=== PATIENT | female | born 1995 | race African-American/Black ===

== ENCOUNTER 2017-08-31 17:35 | Emergency (ER) | payer OTHER ==
[2017-08-31 17:52] VITALS: BP 129/72; PULSE 88; TEMP 99.4; BMI 20.1
--- NOTE | 2017-08-31 17:55 | PDOC ---
Rapid Medical Evaluation Chief Complaint: Pain Medical Evaluation: Allergies Allergy/AdvReac Type Severity Reaction Status Date / Time No Known Allergies Allergy Verified 08/31/17 17:49 Vital Signs Temp Pulse Resp BP Pulse Ox 99.4 F 88 18 129/72 100 08/31/17 17:50 08/31/17 17:50 08/31/17 17:50 08/31/17 17:50 08/31/17 17:50 08/31/17 17:49 I have performed a brief in-person evaluation of this patient. The patient presents with a chief complaint of: pain L rib s/p going to trampoline place 2 days ago, no meds taken Pertinent physical exam findings: well appearing I have ordered the following: rib x-ray, upreg The patient will proceed to the ED for further evaluation.
[2017-08-31] MEDS ORDERED: IBUPROFEN 600 MG TABLET (FP) PO ONE ×2 (19:37→19:39)
--- NOTE | 2017-08-31 20:06 | PDOC ---
History of Present Illness - General Chief Complaint: Pain Stated Complaint: PAIN Time Seen by Provider: 08/31/17 19:44 History Source: Patient Exam Limitations: No Limitations - History of Present Illness Initial Comments: 08/31/17 21:08 Patient is a [22-year-old female, no significant medical history currently on no medication presents with left lower rib pain after jumping on trampoline. Patient reports that she was jumping on a trampoline the next day she woke up with pain denies any direct injury. Patient with no respiratory difficulty, no shortness of breath or chest pain.] Past Medical History: [Denies]. Allergies: No known allergies Medications: [None] Family History: Non-contributory Social History: Denies smoking, alcohol use, or IVDU Review of Systems GENERAL/CONSTITUTIONAL: [No fever or chills. No weakness. No weight change.] HEAD, EYES, EARS, NOSE AND THROAT: [No change in vision. No ear pain or discharge. No sore throat. ] CARDIOVASCULAR: [No chest pain or shortness of breath.] RESPIRATORY: [No cough, wheezing, or hemoptysis.] GASTROINTESTINAL: [No nausea, vomiting, diarrhea or constipation. No rectal bleeding.] GENITOURINARY: [No dysuria, frequency, or change in urination.] MUSCULOSKELETAL: [Left lateral lower rib pain, no neck or back pain.] SKIN AND BREASTS: [No rash or easy bruising.] NEUROLOGIC: [No headache, vertigo, loss of consciousness, or loss of sensation.] PSYCHIATRIC: [No depression or anxiety.] ENDOCRINE: [No increased thirst. No abnormal weight change.] HEMATOLOGIC/LYMPHATIC: [No anemia, easy bleeding, or history of blood clots.] ALLERGIC/IMMUNOLOGIC: [No hives or skin allergy. No latex allergy.] Physical Exam: GENERAL: [The patient is awake, alert, and fully oriented, in no acute distress. ] HEAD: [Normal with no signs of trauma.] EYES: [Pupils equal, round and reactive to light, extraocular movements intact, sclera anicteric, conjunctiva clear.] ENT: [Ears normal, nares patent, oropharynx clear without exudates. Moist mucous membranes. No uvula deviation] NECK: [Normal range of motion, supple without lymphadenopathy, JVD, or masses.] LUNGS: [Breath sounds equal, clear to auscultation bilaterally. No wheezes, and no crackles.] HEART: [Regular rate and rhythm, normal S1 and S2 without murmur, rub or gallop. ] ABDOMEN: [Soft, nontender, normoactive bowel sounds. No guarding, no rebound. No masses. No bruising or abrasions] MUSCULOSKELETAL: [Normal range of motion, no edema. No clubbing or cyanosis. No cords, erythema, or tenderness. No CVA Tenderness with fist palpation. Pain to left lower ribs on deep palpation.] NEUROLOGICAL: [Cranial nerves II through XII grossly intact. Normal speech, normal gait.] SKIN: [Warm, Dry, normal turgor, no rashes or lesions noted. No erythema edema or bruising] Past History - Past Medical History Allergies/Adverse Reactions: Allergies Allergy/AdvReac Type Severity Reaction Status Date / Time No Known Allergies Allergy Verified 08/31/17 17:49 Home Medications: Ambulatory Orders Ibuprofen [Motrin -] 400 mg PO QID #20 tablet 08/31/17 COPD: No - Suicide/Smoking/Psychosocial Hx Smoking History: Never smoked Information on smoking cessation initiated: No Hx Alcohol Use: No Drug/Substance Use Hx: No Substance Use Type: None *Physical Exam - Vital Signs Last Vital Signs Temp Pulse Resp BP Pulse Ox 99.4 F 88 18 129/72 100 08/31/17 17:50 08/31/17 17:50 08/31/17 17:50 08/31/17 17:50 08/31/17 17:50 ED Treatment Course - ADDITIONAL ORDERS Additional order review: Laboratory Results 08/31/17 18:30 Urine HCG, Qual Negative - Medications Given in the ED: ED Medications Discontinued Medications Generic Name Dose Route Start Last Admin Trade Name Freq PRN Reason Stop Dose Admin Ibuprofen 600 mg 08/31/17 19:37 08/31/17 19:42 Motrin - PO 08/31/17 19:38 Not Given ONCE ONE Medical Decision Making - Medical Decision Making 08/31/17 21:10 A/P: Patient with left foot pain after jumping on a trampoline woke up with the pain the next day denies any respiratory difficulty, no shortness of breath, no chest pain. X-ray was sent and negative for acute fracture of ribs patient was given Motrin with good result of symptoms, will DC patient on anti- inflammatories patient reports that she was unable to go to work however the pain is resolving she needs a note to return back to work. *DC/Admit/Observation/Transfer Diagnosis at time of Disposition: Muscle strain, Rib pain on left side - Discharge Dispostion Disposition: HOME Condition at time of disposition: Stable Admit: No - Prescriptions Prescriptions: Ibuprofen [Motrin -] 400 mg PO QID #20 tablet - Referrals Referrals: Gypsy Last [Primary Care Provider] - - Patient Instructions Additional Instructions: 1. Please return to the emergency department with any numbness, tingling, weakness, numbness or tingling to groin or legs, or loss of bowel or bladder function. 2. Use pain medication as ordered. 3. Please is to followup in the office of Dr. Page for evaluation within a week if no improvement. 4. Ice or heat 5. Refrain from lifting anything above 10 pounds, until pain resolved. - Post Discharge Activity Forms/Work/School Notes: Back to Work
== END 2017-08-31 20:47 | disposition home or self-care (01) ==
LOC: JERFT 17:35
DX: R07.81 Pleurodynia (principal); T14.8XXA Other injury of unspecified body region, initial encounter; X58.XXXA Exposure to other specified factors, initial encounter; Y93.9 Activity, unspecified; Y92.9 Unspecified place or not applicable
CPT/HCPCS: 71101-TC-FY; 84703; 99281-25

== ENCOUNTER 2018-07-13 18:43 | Emergency (ER) | payer OTHER ==
--- NOTE | 2018-07-13 19:09 | PDOC ---
Rapid Medical Evaluation Medical Evaluation: Allergies Allergy/AdvReac Type Severity Reaction Status Date / Time No Known Allergies Allergy Verified 08/31/17 17:49 I have performed a brief in-person evaluation of this patient. The patient presents with a chief complaint of: dry cough, nasal congestion, rhinorrhea x 3 days; denies fever, sob, cp, abd pain, n/v/d Pertinent physical exam findings: In NAD, lungs clear, oropharynx clear I have ordered the following: Nothing The patient will proceed to the ED for further evaluation. 07/13/18 19:05 Discharge Disposition - Referrals Referrals: Gypsy Last [Primary Care Provider] - - Patient Instructions - Post Discharge Activity
[2018-07-13 19:12] VITALS: BP 109/67; PULSE 87; TEMP 98.2; BMI 21.7
--- NOTE | 2018-07-13 20:22 | PDOC ---
History of Present Illness - General Chief Complaint: Cold Symptoms Stated Complaint: Cold Symptoms History Source: Patient Exam Limitations: No Limitations Past History - Past Medical History Allergies/Adverse Reactions: Allergies Allergy/AdvReac Type Severity Reaction Status Date / Time No Known Allergies Allergy Verified 07/13/18 19:08 Home Medications: Ambulatory Orders NK [No Known Home Medication] 07/13/18 COPD: No - Suicide/Smoking/Psychosocial Hx Smoking History: Never smoked Information on smoking cessation initiated: No Hx Alcohol Use: No Drug/Substance Use Hx: No Substance Use Type: None *Physical Exam - Vital Signs Last Vital Signs Temp Pulse Resp BP Pulse Ox 98.2 F 87 20 109/67 99 07/13/18 19:06 07/13/18 19:06 07/13/18 19:06 07/13/18 19:06 07/13/18 19:06 - Physical Exam General Appearance: No: Apparent Distress HEENT: positive: Normal ENT Inspection, Normal Voice, Pharynx Normal, Nasal Congestion (mild), Rhinorrhea (mild). negative: Muffled/Hoarse voice, Tonsillar Exudate, Tonsillar Erythema, Sinus Tenderness Respiratory/Chest: positive: Lungs Clear, Normal Breath Sounds. negative: Respiratory Distress Cardiovascular: positive: Regular Rhythm, Regular Rate, S1, S2. negative: Murmur Gastrointestinal/Abdominal: positive: Normal Bowel Sounds, Soft. negative: Tender, Distended, Guarding, Rebound Neurologic: positive: Fully Oriented, Alert, Normal Mood/Affect Moderate Sedation - Procedure Monitoring Vital Signs: Procedure Monitoring Vital Signs Temperature 98.2 F 07/13/18 19:06 Pulse Rate 87 07/13/18 19:06 Respiratory Rate 20 07/13/18 19:06 Blood Pressure 109/67 07/13/18 19:06 O2 Sat by Pulse Oximetry (%) 99 07/13/18 19:06 Medical Decision Making - Medical Decision Making 23 y/o F with no sig pmg presents with dry cough, slight rhinorrhea and nasal congestion x 3 days. Denies fever, chills, body aches, throat pain, ear pain, sob, cp, abd pain, n/v/d PE unremarkable; lungs clear Likely viral syndrome Stable for dc 07/13/18 20:22 *DC/Admit/Observation/Transfer Diagnosis at time of Disposition: Viral URI - Discharge Dispostion Disposition: HOME Condition at time of disposition: Good Decision to Admit order: No - Referrals Referrals: Gypsy Last [Primary Care Provider] - 3 days - Patient Instructions Printed Discharge Instructions: DI for Viral Upper Respiratory Infection -- Adult - Post Discharge Activity
== END 2018-07-13 20:25 | disposition home or self-care (01) ==
LOC: JERFT 18:43 → JER 18:43 → JERFT 20:25
DX: J06.9 Acute upper respiratory infection, unspecified (principal); B97.89 Other viral agents as the cause of diseases classified elsewhere
CPT/HCPCS: 99281-25

== ENCOUNTER 2022-09-16 22:53 | Emergency (ER) | payer OTHER ==
[2022-09-16 22:59] VITALS: BP 115/68; PULSE 84; RESP 16; TEMP 98.3; BMI 16.5
[2022-09-16] MEDS ORDERED: SODIUM CHLORIDE 0.9% 500 ML INFUS.BAG IV ONE (23:50)
[2022-09-17 00:01] LABS: BASO % 0.7 % (0-2.0); EOS % 1.7 % (0-4.5); HEMATOCRIT 38.8 % (32.4-45.2); HEMOGLOBIN 12.6 GM/dL (10.7-15.3); LYMPH % 27.5 % (8-40); MCH 28.7 pg (25.7-33.7); MCHC 32.5 g/dl (32.0-36.0); MEAN CELL VOLUME 88.2 fl (80-96); MEAN PLT VOLUME 8.5 fl (7.5-11.1); MONO % 10.5 % (3.8-10.2); NEUT % 59.6 % (42.8-82.8); PLATELET COUNT 250 10^3/uL (134-434); RDW 14.4 % (11.6-15.6); WHITE BLOOD COUNT 5.8 K/mm3 (4.0-10.0)
[2022-09-17 00:15] LABS: CALCIUM 8.9 mg/dL (8.5-10.1)
[2022-09-17 00:16] LABS: ALBUMIN 3.6 g/dl (3.4-5.0); BLOOD UREA NITROGEN 12.1 mg/dL (7-18)
[2022-09-17 00:19] LABS: CREATININE 0.8 mg/dL (0.55-1.3)
[2022-09-17 00:20] LABS: BILIRUBIN,TOTAL 0.5 mg/dL (0.2-1)
[2022-09-17 00:21] LABS: TOT PROT 7.4 g/dl (6.4-8.2)
== END 2022-09-17 01:48 | disposition home or self-care (01) ==
LOC: JER 22:53
DX: R19.7 Diarrhea, unspecified (principal)
CPT/HCPCS: 0241U-QW; 36415; 80053; 83690; 83735; 84443; 84703; 85025; 99283-25

== ENCOUNTER 2022-10-23 15:38 | Emergency (ER) | payer OTHER ==
[2022-10-23 15:52] VITALS: BP 97/67; PULSE 92; RESP 18; TEMP 97.9; BMI 16.5
[2022-10-23 17:33] LABS: BASO % 0.8 % (0-2.0); EOS % 0.9 % (0-4.5); HEMATOCRIT 36.5 % (32.4-45.2); HEMOGLOBIN 12.4 GM/dL (10.7-15.3); LYMPH % 22.6 % (8-40); MCH 29.6 pg (25.7-33.7); MCHC 33.8 g/dl (32.0-36.0); MEAN CELL VOLUME 87.6 fl (80-96); MEAN PLT VOLUME 8.2 fl (7.5-11.1); MONO % 9.3 % (3.8-10.2); NEUT % 66.4 % (42.8-82.8); PLATELET COUNT 261 10^3/uL (134-434); RBC 4.17 M/mm3 (3.60-5.2); WHITE BLOOD COUNT 8.1 K/mm3 (4.0-10.0)
[2022-10-23 17:38] LABS: INR 1.17 (0.83-1.09); PROTHROMBIN TIME (PATIENT) 13.6 SEC (9.7-13.0)
[2022-10-23 17:41] LABS: ACTIVATED PTT 28.2 SECONDS (25.2-36.5)
[2022-10-23 18:01] LABS: CALCIUM 9.4 mg/dL (8.5-10.1)
[2022-10-23 18:02] LABS: BLOOD UREA NITROGEN 8.9 mg/dL (7-18)
[2022-10-23 18:05] LABS: CREATININE 0.7 mg/dL (0.55-1.3)
[2022-10-23 18:06] LABS: BILIRUBIN,TOTAL 0.8 mg/dL (0.2-1)
[2022-10-23 18:07] LABS: TOT PROT 8.2 g/dl (6.4-8.2)
[2022-10-23] MEDS ORDERED: BACITRACIN ZINC 15 GM TUBE TOPICAL OINTMENT ONE (19:37)
== END 2022-10-23 19:54 | disposition home or self-care (01) ==
LOC: JERFT 15:38 → JER 15:38 → JERFT 19:54
DX: S11.93XA Puncture wound without foreign body of unspecified part of neck, initial encounter (principal); X99.1XXA Assault by knife, initial encounter
CPT/HCPCS: 36415; 70498-TC; 80053; 84703; 85025; 85610; 85730; 86850; 86900; 86901; 99285-25

== ENCOUNTER 2022-10-25 22:15 | Emergency (ER) | payer OTHER ==
[2022-10-25 22:21] VITALS: BP 102/72; PULSE 86; RESP 16; TEMP 98.9; BMI 16.5
[2022-10-25] MEDS ORDERED: IBUPROFEN 600 MG TABLET (FP) PO ONE ×2 (22:44→22:48)
== END 2022-10-25 23:05 | disposition home or self-care (01) ==
LOC: JERFT 22:15
DX: L53.8 Other specified erythematous conditions (principal); M54.2 Cervicalgia; S11.90XD Unspecified open wound of unspecified part of neck, subsequent encounter
CPT/HCPCS: 99282-25

== ENCOUNTER 2022-11-01 13:53 | Emergency (ER) | payer OTHER ==
[2022-11-01 14:04] VITALS: BP 113/62; PULSE 77; RESP 18; TEMP 98.5; BMI 16.5
== END 2022-11-01 15:05 | disposition home or self-care (01) ==
LOC: JERFT 13:53 → JER 13:53 → JERFT 15:05
DX: H92.02 Otalgia, left ear (principal); Z48.02 Encounter for removal of sutures
CPT/HCPCS: 99282-25

== ENCOUNTER 2022-11-13 12:41 | Emergency (ER) | payer OTHER ==
[2022-11-13 12:47] VITALS: BP 108/49; PULSE 76; RESP 18; TEMP 97.9; BMI 16.5
[2022-11-13 14:13] LABS: CALCIUM 9.3 mg/dL (8.5-10.1)
[2022-11-13 14:14] LABS: ALBUMIN 3.7 g/dl (3.4-5.0); BASO % 1.2 % (0-2.0); BLOOD UREA NITROGEN 11.4 mg/dL (7-18); EOS % 5.2 % (0-4.5); HEMATOCRIT 35.9 % (32.4-45.2); LYMPH % 30.3 % (8-40); MCH 29.6 pg (25.7-33.7); MCHC 33.5 g/dl (32.0-36.0); MEAN CELL VOLUME 88.2 fl (80-96); MEAN PLT VOLUME 8.7 fl (7.5-11.1); MONO % 7.6 % (3.8-10.2); NEUT % 55.7 % (42.8-82.8); PLATELET COUNT 246 10^3/uL (134-434); RBC 4.07 M/mm3 (3.60-5.2); RDW 14.2 % (11.6-15.6); WHITE BLOOD COUNT 4.4 K/mm3 (4.0-10.0)
[2022-11-13 14:17] LABS: CREATININE 0.7 mg/dL (0.55-1.3)
[2022-11-13 14:19] LABS: BILIRUBIN,TOTAL 0.5 mg/dL (0.2-1); TOT PROT 7.9 g/dl (6.4-8.2)
== END 2022-11-13 16:54 | disposition home or self-care (01) ==
LOC: JERFT 12:41
DX: M54.2 Cervicalgia (principal)
CPT/HCPCS: 36415; 70491-TC; 80053; 84703; 85025; 99285-25

== ENCOUNTER 2023-08-29 21:26 | Emergency (ER) | payer OTHER ==
[2023-08-29 21:40] VITALS: BP 125/63; PULSE 117; RESP 18; TEMP 99.8; BMI 16.6
[2023-08-29] MEDS ORDERED: IBUPROFEN 600 MG TABLET (FP) PO ONE (22:41)
[2023-08-29] MEDS: IBUPROFEN 600 MG TABLET (FP) PO ONE (22:43)
== END 2023-08-29 23:50 | disposition home or self-care (01) ==
LOC: JERFT 21:26
DX: M25.521 Pain in right elbow (principal); R68.84 Jaw pain; R11.10 Vomiting, unspecified; R22.31 Localized swelling, mass and lump, right upper limb; Y04.0XXA Assault by unarmed brawl or fight, initial encounter
CPT/HCPCS: 70110-TC-FY; 73070-TC-RT-FY; 99284-25

== ENCOUNTER 2024-09-08 20:58 | Emergency (ER) | payer OTHER ==
[2024-09-08 21:03] VITALS: BP 115/73; RESP 18; BMI 19.3
[2024-09-08] MEDS: ACETAMINOPHEN 325 MG TABLET (FP) PO ONE (21:15)
[2024-09-08] MEDS ORDERED: ACETAMINOPHEN 500 MG TABLET (FP) ONE (21:17)
[2024-09-08 22:14] VITALS: PULSE 90; TEMP 101
[2024-09-08] MEDS ORDERED: IBUPROFEN 600 MG TABLET (FP) PO ONE (22:25)
== END 2024-09-08 22:32 | disposition home or self-care (01) ==
LOC: JERFT 20:58
DX: J10.1 Influenza due to other identified influenza virus with other respiratory manifestations (principal); R50.9 Fever, unspecified; R05.9 Cough, unspecified; R00.0 Tachycardia, unspecified; R09.81 Nasal congestion; Z20.822 Contact with and (suspected) exposure to COVID-19
CPT/HCPCS: 0241U-QW; 71046-TC-FY; 99284-25